=== PATIENT | male | born 1975 | race Caucasian/White ===

== ENCOUNTER 2017-01-19 23:03 | Emergency (ER) | payer OTHER ==
[~2017-01-19] VITALS: Ht 177.8 cm; Wt 80.7 kg
[~2017-01-19 23:03] MED LIST: AMOXICILLIN875 MG PO; LIDOCAINE700 MG TD; NAPROSYN500 MG PO
[2017-01-19 23:42] LABS: HEMATOCRIT 39.5 % (38.0-50.0); MCH 30.5 PG (29.0-34.0); MCHC 36.7 G/DL (30.0-36.0); MEAN PLAT.VOLUME 10.5 uM^3 (9.0-12.4); PLATELET COUNT 263 K/uL (156-360); RBC DIS.WIDTH-CV 13.2 % (11.8-14.6); RBC DIS.WIDTH-SD 39.2 % (39-53); RED BLOOD COUNT 4.76 M/uL (4.00-5.50); WHITE BLOOD COUNT 4.9 K/uL (4.1-10.2)
[2017-01-19 23:49] LABS: CHLORIDE 108 mEq/L (99-109); SODIUM 144 mEq/L (136-147)
[2017-01-19 23:51] LABS: GLUCOSE 99 mg/dL (70-99)
[2017-01-19 23:53] LABS: ANION GAP 12 MEQ/L (2-14)
[2017-01-19 23:55] LABS: GFR ESTIMATE (CALCULATED) > 59 mL/min/
[2017-01-19 23:56] LABS: UREA NITROGEN (BUN) 12 mg/dL (9-23)
[2017-01-20 00:02] LABS: TROP-I INTERPRETATION NEGATIVE; TROPONIN-I < 0.01 ng/mL (0.0-0.30)
[2017-01-20 01:09] LABS: TOTAL BILIRUBIN 0.4 mg/dL (0.0-1.0)
[2017-01-20 01:10] LABS: ALKALINE PHOSPHATASE 64 IU/L (3-129)
[2017-01-20 01:12] LABS: DIRECT BILIRUBIN 0.1 mg/dL (0.0-0.3)
[2017-01-20 01:13] LABS: LIPASE 14 U/L (1.0-51.0)
[2017-01-20 02:50] LABS: TROP-I INTERPRETATION NEGATIVE; TROPONIN-I < 0.01 ng/mL (0.0-0.30)
[2017-01-20] MEDS ORDERED: PEPCID20 MG PO (02:55)
[2017-01-20 03:40] VITALS: BP 148/97
== END 2017-01-20 03:41 | disposition home or self-care (01) ==
LOC: EME 23:03
PROVIDERS: Emergency Medicine
DX: R07.9 Chest pain, unspecified (principal); R10.13 Epigastric pain
CPT/HCPCS: 71020; 80048; 80076; 83690; 84484; 85027; 93005; 99281; 99284